=== PATIENT | male | born 1960 | race Caucasian/White ===

== ENCOUNTER → 2023-09-20 12:18 | Outpatient (CLI) | payer BC, SELFPAY ==
--- NOTE | 2023-09-20 | DI.US.S_ITS ---
PROCEDURE: US ABDOMEN LIMITED INDICATIONS: SEPARATION OF MUSCLE(NONTRAUMATIC),DIASTASIS RECTI VS HERNIA TECHNIQUE: Real-time focused scanning was performed of the abdomen, with image documentation. COMPARISON: None. FINDINGS: There is lewm-on-pszlfnho diastasis recti, with measurements of the linea alba extending from the xiphoid to the umbilicus ranging between 2.4 through 3.2 cm. Greatest measurement is superior to the umbilicus, measuring 3.8 cm in width. IMPRESSION: Xaun-cx-cipbdrri diastasis recti. Dictated by: Quinn Baltazar M.D. on 10/04/2023 at 9:51 Approved by: Quinn Baltazar M.D. on 10/04/2023 at 9:53
== END ==
PROVIDERS: PCP Nurse Practitioner; Referring Provider Nurse Practitioner; Visit Provider Nurse Practitioner
DX: M62.08 Separation of muscle (nontraumatic), other site (principal)
CPT/HCPCS: 76705